=== PATIENT | female | born 1950 | race Caucasian/White ===

== ENCOUNTER 2022-05-30 13:01 | Observation (INO) | payer MEDICAID ==
[~2022-05-30] VITALS: Ht 157.5 cm; Wt 61.2 kg
--- NOTE | 2022-05-30 13:01 | NUR ---
1259- PT TERENCE NORTON, VIA GURNEY TO BED 04.
[2022-05-30 13:07] VITALS: BP 75/44
--- NOTE | 2022-05-30 13:24 | NUR ---
PER DR FOSTER FINISH LITER BOLUS OF FLUIDS, BP NOW 117/68
--- NOTE | 2022-05-30 13:25 | NUR ---
72 Y/O FEMALE BIBA FROM [facility], PER EMS PT WAS SITTING ON HER DINING ROOM CHAIR WHEN SHE HAD A WITNESSED SYNCOPE 20-30 SECONDS BY FAMILY, ON SCENE HR WAS 48 AND BP 84/30, INSERTED 18 G IN THE RAC AND GIVEN 500CC OF NSS, BP BY EMS 127/72, HR 62. PER EMS DENIED ANY HEAD INJURY, PT STATES PAIN ON THE RIGHT SIDE OF HER BODY AND DIZZINESS. BP IN BED 75/44, PLACED IN [place]. PER PT SHE HAS BEEN FEELING DIZZY AND WEAK FOR THE PAST 3DAYS BUT HAS ONLY HAD A SYNCOPE TODAY. NKA PMH: HTN, HDL, HYPOTHYROIDISM
[2022-05-30] MEDS ORDERED: NACL 0.9% 1,000 ML IV ONE (13:50)
--- NOTE | 2022-05-30 14:39 | NUR ---
lab at bedside
--- NOTE | 2022-05-30 14:52 | NUR ---
taken to ct via jos ej
--- NOTE | 2022-05-30 14:54 | NUR ---
PT RETURN FROM CT
[2022-05-30 15:13] LABS: BASOPHILS % (AUTO) 0.6 % (0.0-2.0); EOSINOPHILS % (AUTO) 0.4 % (0.0-4.0); HEMATOCRIT 36.8 % (36-48); HEMOGLOBIN 11.9 g/dL (12.0-16.0); LYMPHOCYTES # (AUTO) 0.7 K/uL (2.5-16.5); LYMPHOCYTES % (AUTO) 11.6 % (20.5-51.1); MEAN CORPUSCULAR HEMOGLOBIN 28 pg (27-31); MEAN CORPUSCULAR HGB CONC 32 g/dL (33-37); MEAN CORPUSCULAR VOLUME 87.5 fL (80-94); MONOCYTES # (AUTO) 0.2 K/uL (0.8-1.0); NEUTROPHILS % (AUTO) 84.4 % (42.2-75.2); PLATELET COUNT (AUTO) 195 K/uL (140-450); RED BLOOD CELL COUNT(AUTO) 4.21 MIL/uL (4.20-5.40); RED CELL DISTRIBUTION WIDTH 14.7 % (11.6-13.7)
--- NOTE | 2022-05-30 15:15 | NUR ---
PT AMBULATED TO BATHROOM
[2022-05-30 15:39] LABS: APPEARANCE,URINE CLEAR (CLEAR); BILIRUBIN,URINE NEGATIVE (NEGATIVE); BLOOD, URINE NEGATIVE (NEGATIVE); COLOR,URINE YELLOW (YELLOW); LEUKOCYTE ESTERASE ,URINE NEGATIVE (NEGATIVE); NITRITE, URINE NEGATIVE (NEGATIVE); PH,URINE 6.5 (5.0-9.0); UGLUCOSE NEGATIVE (NEGATIVE)
[2022-05-30 15:48] LABS: CARBON DIOXIDE 27.1 mmol/L (21-32); CHLORIDE 108 mmol/L (98-107); CREATININE 0.7 mg/dL (0.6-1.3); GLUCOSE 102 mg/dL (74-106); POTASSIUM 4.1 mmol/L (3.5-5.1); SODIUM SERUM 141 mmol/L (136-145); UREA NITROGEN, BLOOD 9 mg/dL (7-18)
[2022-05-30 16:10] LABS: ALBUMIN 3.9 g/dL (3.4-5.0); ASPARTATE AMINOTRANSFERASE 21 U/L (15-37); TOTAL BILIRUBIN 0.7 mg/dL (0.0-1.0)
[2022-05-30] MEDS ORDERED: ASPI-1856 PO (16:18)
[2022-05-30] MEDS ORDERED: ATOR20TA40 PO (16:18)
[2022-05-30] MEDS ORDERED: IBUP-2213 PO (16:18)
[2022-05-30] MEDS ORDERED: LEVO0.0512 PO (16:18)
[2022-05-30] MEDS ORDERED: SUCR1TAB7 PO (16:18)
[2022-05-30] MEDS ORDERED: GABA-636 PO (16:18)
[2022-05-30] MEDS ORDERED: ENAL10TA51 PO (16:18)
[2022-05-30] MEDS ORDERED: CARB1TAB40 PO (16:18)
--- NOTE | 2022-05-30 16:25 | NUR ---
swabs handed to concrete laborershu cox
--- NOTE | 2022-05-30 16:41 | NUR ---
PORTABLE PHONE HANDED TO PT, PT CALLING LANG
[2022-05-30] MEDS ORDERED: ONDANSETRON 4 MG/2 ML VIAL IVP PRN (18:25)
[2022-05-30] MEDS ORDERED: MORPHINE SULFATE 2 MG/ML SYR IVP PRN (18:25)
[2022-05-30] MEDS ORDERED: LORazepam 2 MG/ML VIAL IVP PRN (18:25)
[2022-05-30] MEDS ORDERED: ACETAMINOPHEN 325 MG TAB PO PRN (18:25)
[2022-05-30] MEDS: NACL 0.9% 1,000 ML IV SCH (19:10)
--- NOTE | 2022-05-30 19:24 | NUR ---
ERMD AT BEDSIDE TALKING WITH PT
--- NOTE | 2022-05-30 19:27 | NUR ---
Pt report given to TAYLER Graf. Transfer of care at this time.
--- NOTE | 2022-05-30 20:38 | NUR ---
Patient will be admitted to care of DR GARBER. Admited to TELE. Will go to room. Belongings list completed. Report to TAYLER ANTHONY.
--- NOTE | 2022-05-30 20:43 | NUR ---
Yajaira rojas in [facility] - 05/30/22 at 2103 by JANET RETURN CALL FROM TELEPSYCH DOCTOR WHO SPOKE WITH PRIMARY TAYLER DIANE
[2022-05-30 21:20] VITALS: BP 160/64
--- NOTE | 2022-05-30 21:30 | NUR ---
72 YR FEMALE ADDMITTED TO RM 127A IS ALERT ORIENT TO ROOM AND SURROUNDINGS MADE COMFORTABLE IN BED
[2022-05-31] VITALS: BP 151/68
[2022-05-31 04:00] VITALS: BP 146/66
[2022-05-31] MEDS: NACL 0.9% 1,000 ML IV SCH (04:32)
[2022-05-31 05:59] LABS: BASOPHILS % (AUTO) 1.4 % (0.0-2.0); EOSINOPHILS # (AUTO) 0.1 K/uL (0-0.4); EOSINOPHILS % (AUTO) 1.8 % (0.0-4.0); HEMATOCRIT 31.4 % (36-48); HEMOGLOBIN 10.5 g/dL (12.0-16.0); LYMPHOCYTES % (AUTO) 31.7 % (20.5-51.1); MEAN CORPUSCULAR HEMOGLOBIN 29 pg (27-31); MEAN CORPUSCULAR HGB CONC 33 g/dL (33-37); MEAN CORPUSCULAR VOLUME 86.8 fL (80-94); MONOCYTES # (AUTO) 0.2 K/uL (0.8-1.0); MONOCYTES % (AUTO) 6.7 % (1.7-9.3); NEUTROPHILS # (AUTO) 1.9 K/uL (1.8-7.7); NEUTROPHILS % (AUTO) 58.4 % (42.2-75.2); PLATELET COUNT (AUTO) 175 K/uL (140-450); RED BLOOD CELL COUNT(AUTO) 3.62 MIL/uL (4.20-5.40); RED CELL DISTRIBUTION WIDTH 14.6 % (11.6-13.7); WHITE BLOOD COUNT (AUTO) 3.2 K/uL (4.8-10.8)
[2022-05-31 06:12] LABS: ALBUMIN 3.2 g/dL (3.4-5.0); ASPARTATE AMINOTRANSFERASE 21 U/L (15-37); CARBON DIOXIDE 27.9 mmol/L (21-32); CHLORIDE 110 mmol/L (98-107); CREATININE 0.8 mg/dL (0.6-1.3); GLUCOSE 87 mg/dL (74-106); PHOSPHORUS 3.6 mg/dL (2.5-4.9); POTASSIUM 3.9 mmol/L (3.5-5.1); SODIUM SERUM 145 mmol/L (136-145); TOTAL BILIRUBIN 0.7 mg/dL (0.0-1.0)
[2022-05-31 06:44] LABS: UREA NITROGEN, BLOOD 7 mg/dL (7-18)
--- NOTE | 2022-05-31 07:30 | NUR ---
RECEIVED BEDSIDE REPORT FROM DIGITAL PRINT OPERATOR NURSE, PT AWAKE ALERT ABLE TO LET NEEDS KNOWN, IV TO RIGHT AC 18G, PATENT INTACT, INFUSING WELL. PT ON ROOM AIR, NO SOB NOTED, INITIAL ASSESSMENT DONE, ALL SAFETY PRECAUTION MET, CALL LIGHT WITHIN REACH, WILL CONTINUE TO MONITOR.
[2022-05-31 08:00] VITALS: BP 156/76
[2022-05-31] MEDS ORDERED: SUCRALFATE 1 GM TAB PO SCH (09:00)
[2022-05-31] MEDS ORDERED: ATORVASTATIN 20 MG TAB PO SCH (09:00)
[2022-05-31] MEDS ORDERED: GABAPENTIN 100 MG CAP PO SCH (09:00)
[2022-05-31] MEDS ORDERED: ECOTRIN 81 MG TABEC PO SCH (09:00)
--- NOTE | 2022-05-31 09:00 | NUR ---
DR MCKEON AT BEDSIDE, WILL CONTINUE TO MONITOR.
--- NOTE | 2022-05-31 09:05 | NUR ---
PATIENT HAS BEEN SCREENED AND CATEGORIZED LOW NUTRITION RISK. PATIENT WILL BE SEEN WITHIN 7 DAYS OF ADMISSION. 06/06/[address]
--- NOTE | 2022-05-31 09:47 | NUR ---
DUE MEDICATIONS ADMINISTERED, PT TOLERATED WELL, WILL CONTINUE TO MONITOR.
--- NOTE | 2022-05-31 11:25 | NUR ---
DISCHARGE INSTRUCTION GIVEN, DIPPER AND BAKER LAURA #[id number] THROUGH [employer]. PT STATED UNDERSTANDING, DAUGHTER STATED UNDERSTANDING, ALL QUESTIONS ANSWERED.
--- NOTE | 2022-05-31 11:34 | NUR ---
PT LEFT UNIT, DAUGHTER WAITING IN CAR. PT IN STABLE CONDITION, IV TAKEN OUT, CATH INTACT, WRISTBAND TAKEN OUT.
[2022-06-01] MEDS ORDERED: LEVOTHYROXINE 0.05 MG TAB PO SCH (06:30)
== END 2022-05-31 11:40 | disposition home or self-care (01) ==
LOC: MED 13:01 → MTU 18:30 → MMU 20:06
PROVIDERS: ADMIT Student in an Organized Health Care Education/Training Program; ATTEND Student in an Organized Health Care Education/Training Program
DX: I95.1 Orthostatic hypotension (principal); Z20.822 Contact with and (suspected) exposure to COVID-19; I10 Essential (primary) hypertension; E78.5 Hyperlipidemia, unspecified; N83.8 Other noninflammatory disorders of ovary, fallopian tube and broad ligament; E03.9 Hypothyroidism, unspecified; R16.0 Hepatomegaly, not elsewhere classified; F03.90 Unspecified dementia, unspecified severity, without behavioral disturbance, psychotic disturbance, mood disturbance, and anxiety; Z79.82 Long term (current) use of aspirin; Z79.899 Other long term (current) drug therapy
CPT/HCPCS: 36415; 74176; 80053; 81003; 83735; 84100; 84484; 85025; 87081; 87426; 93005; 96360; 96361; 99285; G0378

== ENCOUNTER 2022-08-16 12:40 | Emergency (ER) | payer MEDICAID ==
[~2022-08-16] VITALS: Ht 149.9 cm; Wt 47.6 kg
[~2022-08-16 12:40] MED LIST: ASPI-1856 PO; ATOR20TA40 PO; CARB1TAB40 PO; ENAL10TA51 PO; GABA-636 PO; IBUP-2213 PO; LEVO0.0512 PO; SUCR1TAB7 PO
[2022-08-16 12:51] VITALS: BP 162/111
--- NOTE | 2022-08-16 12:51 | NUR ---
pt ambulated to bed 12
--- NOTE | 2022-08-16 13:32 | NUR ---
72 Y/O FEMALE LUNA PEARSON C/O RIGHT LOWER ABD PAINX2 WEEKS, PER PT SHE WAS SUPPOSED TO BE SCHEDULED FOR A LAPAROSCOPIC REMOVAL OF THE RIGHT OVARY, HOWEVER THE SURGERY WAS NOT SCHEDULED SINCE THEY FOUND A MASS IN HER LIVER, SCHEDULED FOR AN MRI FOR THE LIVER MASS IN UNKNOWN DATE. KAYODE PMH: HTN Addendum: 08/16/22 at 1349 by MNAGUILA UNSPECIFIED OVARY NOT THE RIGHT SITE, NEW PAPERWORK GIVEN BY FAMILY MEMBER
[2022-08-16 13:33] LABS: BASOPHILS % (AUTO) 1.3 % (0.0-2.0); EOSINOPHILS # (AUTO) 0.1 K/uL (0-0.4); EOSINOPHILS % (AUTO) 2.5 % (0.0-4.0); HEMATOCRIT 32.9 % (36-48); HEMOGLOBIN 11.1 g/dL (12.0-16.0); LYMPHOCYTES % (AUTO) 26.4 % (20.5-51.1); MEAN CORPUSCULAR HEMOGLOBIN 29 pg (27-31); MEAN CORPUSCULAR HGB CONC 34 g/dL (33-37); MEAN CORPUSCULAR VOLUME 85.5 fL (80-94); MONOCYTES # (AUTO) 0.2 K/uL (0.8-1.0); MONOCYTES % (AUTO) 5.6 % (1.7-9.3); NEUTROPHILS # (AUTO) 2.4 K/uL (1.8-7.7); NEUTROPHILS % (AUTO) 64.2 % (42.2-75.2); PLATELET COUNT (AUTO) 194 K/uL (140-450); RED BLOOD CELL COUNT(AUTO) 3.85 MIL/uL (4.20-5.40); RED CELL DISTRIBUTION WIDTH 14.6 % (11.6-13.7); WHITE BLOOD COUNT (AUTO) 3.7 K/uL (4.8-10.8)
[2022-08-16 14:11] LABS: APPEARANCE,URINE CLEAR (CLEAR); BILIRUBIN,URINE NEGATIVE (NEGATIVE); BLOOD, URINE NEGATIVE (NEGATIVE); COLOR,URINE YELLOW (YELLOW); LEUKOCYTE ESTERASE ,URINE NEGATIVE (NEGATIVE); NITRITE, URINE NEGATIVE (NEGATIVE); UGLUCOSE NEGATIVE (NEGATIVE)
[2022-08-16 14:30] LABS: ANION GAP 12.9 (8-16); ASPARTATE AMINOTRANSFERASE 23 U/L (15-37); CARBON DIOXIDE 27.1 mmol/L (21-32); CHLORIDE 105 mmol/L (98-107); CREATININE 0.9 mg/dL (0.6-1.3); GLUCOSE 89 mg/dL (74-106); SODIUM SERUM 141 mmol/L (136-145); TOTAL BILIRUBIN 0.7 mg/dL (0.0-1.0); UREA NITROGEN, BLOOD 12 mg/dL (7-18)
[2022-08-16] MEDS ORDERED: ONDANSETRON 4 MG/2 ML VIAL IVP ONE (14:50)
[2022-08-16] MEDS ORDERED: MORPHINE SULFATE 4 MG/ML SYR IVP ONE (14:50)
[2022-08-16 15:12] LABS: ALBUMIN 3.7 g/dL (3.4-5.0)
--- NOTE | 2022-08-16 15:23 | NUR ---
PT TAKEN TO CT VIA RAFAEL
--- NOTE | 2022-08-16 15:39 | NUR ---
SPOKE TO DAUGHTER LANG EXPLAINED THAT PT WILL BE RECEIVING NON-IODDIZED CONTRAST FOR CT PER WINSTON
[2022-08-16 18:06] VITALS: BP 150/99
--- NOTE | 2022-08-16 18:07 | NUR ---
Patient discharged with v/s stable. Written and verbal after care instructions ABOUT ABD PAIN given and explained. Patient verbalized understanding. Ambulatory with steady gait. All questions addressed prior to discharge. Advised to follow up with PMD.
== END 2022-08-16 18:07 | disposition home or self-care (01) ==
LOC: MED 12:40
DX: R10.31 Right lower quadrant pain (principal); I10 Essential (primary) hypertension; E03.9 Hypothyroidism, unspecified; E78.00 Pure hypercholesterolemia, unspecified; Z79.899 Other long term (current) drug therapy; Z91.040 Latex allergy status
CPT/HCPCS: 36415; 74176; 80053; 81003; 85025; 96374; 96375; 99285; J2270; J2405

== ENCOUNTER 2022-09-23 13:13 | Emergency (ER) | payer MEDICAID ==
[~2022-09-23] VITALS: Ht 157.5 cm; Wt 47.7 kg
[2022-09-23 13:35] VITALS: BP 142/91
--- NOTE | 2022-09-23 13:42 | NUR ---
PATIENT AMBULATED TO BED 3.
--- NOTE | 2022-09-23 14:30 | NUR ---
72/F WALKED IN C/O MID ABD PAIN ONSET 3WKS. DENIES NVD. AAO4, [place] CITIZ[place] SPEAKING. 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 PMH: HTN, HLD, THYROID
[2022-09-23] MEDS ORDERED: FAMOTIDINE 20 MG/2 ML VIAL IVP ONE (14:40)
[2022-09-23] MEDS ORDERED: NACL 0.9% 1,000 ML IV SCH (14:40)
[2022-09-23] MEDS ORDERED: MORPHINE SULFATE 2 MG/ML SYR IVP PRN (15:00)
[2022-09-23 15:01] LABS: BILIRUBIN,URINE NEGATIVE (NEGATIVE); BLOOD, URINE NEGATIVE (NEGATIVE); LEUKOCYTE ESTERASE ,URINE NEGATIVE (NEGATIVE); NITRITE, URINE NEGATIVE (NEGATIVE); PH,URINE 5.5 (5.0-9.0); UGLUCOSE NEGATIVE (NEGATIVE)
[2022-09-23 15:09] LABS: APPEARANCE,URINE CLEAR (CLEAR); COLOR,URINE STRAW (YELLOW)
[2022-09-23 15:13] LABS: BASOPHILS % (AUTO) 1.1 % (0.0-2.0); EOSINOPHILS % (AUTO) 0.8 % (0.0-4.0); HEMATOCRIT 34.9 % (36-48); HEMOGLOBIN 11.6 g/dL (12.0-16.0); LYMPHOCYTES # (AUTO) 1.2 K/uL (2.5-16.5); LYMPHOCYTES % (AUTO) 30.4 % (20.5-51.1); MEAN CORPUSCULAR HEMOGLOBIN 29 pg (27-31); MEAN CORPUSCULAR HGB CONC 33 g/dL (33-37); MEAN CORPUSCULAR VOLUME 85.6 fL (80-94); MONOCYTES # (AUTO) 0.2 K/uL (0.8-1.0); MONOCYTES % (AUTO) 6.1 % (1.7-9.3); NEUTROPHILS # (AUTO) 2.4 K/uL (1.8-7.7); NEUTROPHILS % (AUTO) 61.6 % (42.2-75.2); PLATELET COUNT (AUTO) 205 K/uL (140-450); RED BLOOD CELL COUNT(AUTO) 4.08 MIL/uL (4.20-5.40); RED CELL DISTRIBUTION WIDTH 14.7 % (11.6-13.7); WHITE BLOOD COUNT (AUTO) 3.9 K/uL (4.8-10.8)
[2022-09-23 15:36] LABS: AMYLASE 83 U/L (25-115); ANION GAP 11.8 (8-16); ASPARTATE AMINOTRANSFERASE 31 U/L (15-37); CARBON DIOXIDE 30.5 mmol/L (21-32); CHLORIDE 103 mmol/L (98-107); CREATININE 0.8 mg/dL (0.6-1.3); GLUCOSE 102 mg/dL (74-106); LIPASE 104 U/L (73-393); POTASSIUM 4.3 mmol/L (3.5-5.1); SODIUM SERUM 141 mmol/L (136-145); TOTAL BILIRUBIN 0.8 mg/dL (0.0-1.0); UREA NITROGEN, BLOOD 13 mg/dL (7-18)
[2022-09-23] MEDS ORDERED: ONDANSETRON 4 MG/2 ML VIAL IVP ONE (15:40)
[2022-09-23] MEDS ORDERED: FAMO-90 PO (16:56)
[2022-09-23] MEDS ORDERED: ACET-10509 PO (16:56)
[2022-09-23] MEDS ORDERED: OMEP40EC23 PO (16:56)
[2022-09-23] MEDS ORDERED: ONDA-188 PO (16:56)
[2022-09-23] MEDS ORDERED: SUCR1TAB35 PO (16:57)
--- NOTE | 2022-09-23 17:30 | NUR ---
IV removed, catheter intact and site benign. Applied folded 4x4 gauze and tape to stop bleeding.
--- NOTE | 2022-09-23 17:35 | NUR ---
Patient discharged with v/s stable. Written and verbal after care instructions ABOUT CT SCAN, FOOD CHOICES FOR GERD, GERD given and explained. Patient alert, oriented and verbalized understanding of instructions. Ambulatory with steady gait. All questions addressed prior to discharge. ID band removed. Patient advised to follow up with PMD. Rx of TYLENOL EXTRA STRENGTH, PEPCID, OMEPRAZOLE, ZOFRAN, CARAFATE given. Patient educated on indication of medication including possible reaction and side effects. Opportunity to ask questions provided and answered.
== END 2022-09-23 17:35 | disposition home or self-care (01) ==
LOC: MED 13:13
DX: K29.70 Gastritis, unspecified, without bleeding (principal); C22.9 Malignant neoplasm of liver, not specified as primary or secondary; I10 Essential (primary) hypertension; E78.5 Hyperlipidemia, unspecified; E03.9 Hypothyroidism, unspecified; Z79.899 Other long term (current) drug therapy
CPT/HCPCS: 36415; 74176; 80053; 81003; 82150; 83690; 85025; 96361; 96374; 96375; 99284; J2270; J2405; J3490

== ENCOUNTER 2022-10-31 12:03 | Emergency (ER) | payer MEDICAID ==
[~2022-10-31] VITALS: Ht 157.5 cm; Wt 45.8 kg
[~2022-10-31 12:03] MED LIST changes: +ACET-10509 PO; +FAMO-90 PO; +OMEP40EC23 PO; +ONDA-188 PO; +SUCR1TAB35 PO
--- NOTE | 2022-10-31 12:12 | NUR ---
PT AMBULATED TO ER BED 5
[2022-10-31 12:13] VITALS: BP 195/68
--- NOTE | 2022-10-31 12:40 | NUR ---
Dr. Drummond evaluating patient at bedside
[2022-10-31 12:41] LABS: BASOPHILS % (AUTO) 1.4 % (0.0-2.0); EOSINOPHILS % (AUTO) 0.8 % (0.0-4.0); HEMATOCRIT 34.6 % (36-48); HEMOGLOBIN 11.3 g/dL (12.0-16.0); LYMPHOCYTES # (AUTO) 0.9 K/uL (2.5-16.5); LYMPHOCYTES % (AUTO) 27.5 % (20.5-51.1); MEAN CORPUSCULAR HEMOGLOBIN 28 pg (27-31); MEAN CORPUSCULAR HGB CONC 33 g/dL (33-37); MEAN CORPUSCULAR VOLUME 85.7 fL (80-94); MONOCYTES # (AUTO) 0.2 K/uL (0.8-1.0); MONOCYTES % (AUTO) 6.3 % (1.7-9.3); NEUTROPHILS # (AUTO) 2.2 K/uL (1.8-7.7); PLATELET COUNT (AUTO) 212 K/uL (140-450); RED BLOOD CELL COUNT(AUTO) 4.03 MIL/uL (4.20-5.40); WHITE BLOOD COUNT (AUTO) 3.4 K/uL (4.8-10.8)
--- NOTE | 2022-10-31 12:41 | NUR ---
72/F WALKED IN C/O RIGHT SIDED ABD PAIN ACCOMPANIED BY NAUSEA ONSET 1 DAY. AFEBRILE AT TRIAGE. PT REPORTS LIVER MASS FOUND IN 08/2022. PATIENT A&OX4, AMBULATORY, STATES HAS NOT STARTED TREATMENT FOR MASS; CURRENTLY SEEING ONCOLOGIST. PT REPORTS 05/12, DULL/CONSTANT, NON-RADIATING PAIN. DENIES NAUSEA, VOMITING, DIARRHEA, CONSTIPATION, CHEST PAIN, FEVER, CHILLS, DYSURIA, URINARY SYMPTOMS. PT PLACED IN GOWN AND GLOBAL ANALYTICS HEAD. BED LOCKED IN LOWEST POSITION, SIDE RAILS X 1. PMH: HTN, HLD, OVARIAN CYST, HYPOTHYROIDISM, LIVER MASS (08/24) MEDS: CARAFATE, TYLENOL, OMPERAZOLE, PEPCID, ENALAPRIL, ATORVASTATIN, LEVOTHYROXINE, GABAPENTIN, ASA 81MG ALLERGIES: IODINE
[2022-10-31 12:47] LABS: ALBUMIN 3.9 g/dL (3.4-5.0); ANION GAP 11.9 (8-16); ASPARTATE AMINOTRANSFERASE 23 U/L (15-37); CARBON DIOXIDE 29.8 mmol/L (21-32); CHLORIDE 102 mmol/L (98-107); CREATININE 0.9 mg/dL (0.6-1.3); GLUCOSE 101 mg/dL (74-106); POTASSIUM 3.7 mmol/L (3.5-5.1); SODIUM SERUM 140 mmol/L (136-145); TOTAL BILIRUBIN 0.6 mg/dL (0.0-1.0); UREA NITROGEN, BLOOD 13 mg/dL (7-18)
[2022-10-31] MEDS ORDERED: KETOROLAC 15 MG/ML VIAL IVP ONE (12:50)
[2022-10-31] MEDS ORDERED: PANTOPRAZOLE 40 MG INJ VIAL IVP ONE (12:50)
--- NOTE | 2022-10-31 12:55 | NUR ---
US tech at bedside
[2022-10-31 15:43] VITALS: BP 148/70
[2022-10-31] MEDS ORDERED: TRAM-748 PO (15:45)
[2022-10-31] MEDS ORDERED: OMEP20EC11 PO (15:45)
--- NOTE | 2022-10-31 16:08 | NUR ---
Patient discharged with v/s stable. Written and verbal after care instructions ABOUT LIVER CA, ABD PAIN given and explained. Patient alert, oriented and verbalized understanding of instructions. Ambulatory with steady gait. All questions addressed prior to discharge. ID band removed. Patient advised to follow up with PMD. Rx of OMEPRAZOLE, TRAMADOL given. Patient educated on indication of medication including possible reaction and side effects. Opportunity to ask questions provided and answered.
== END 2022-10-31 16:08 | disposition home or self-care (01) ==
LOC: MED 12:03
DX: C22.9 Malignant neoplasm of liver, not specified as primary or secondary (principal); C79.60 Secondary malignant neoplasm of unspecified ovary; R10.9 Unspecified abdominal pain; I10 Essential (primary) hypertension; E07.9 Disorder of thyroid, unspecified; Z79.899 Other long term (current) drug therapy; Z88.8 Allergy status to other drugs, medicaments and biological substances; Z79.82 Long term (current) use of aspirin
CPT/HCPCS: 36415; 74177; 76705; 80053; 85025; 96374; 96375; 99285; C9113; J1885; Q0092; Q9967

== ENCOUNTER 2023-06-30 11:50 | Emergency (ER) | payer MEDICAID ==
[~2023-06-30] VITALS: Ht 157.5 cm; Wt 44.9 kg
[~2023-06-30 11:50] MED LIST changes: +OMEP20EC11 PO; +TRAM-748 PO
[2023-06-30 12:29] VITALS: BP 112/69; PULSE 66; RESP 18; TEMP 98; O2SAT 98
[2023-06-30 13:19] LABS: BASOPHILS % (AUTO) 1.1 % (0.0-2.0); EOSINOPHILS % (AUTO) 1.2 % (0.0-4.0); HEMATOCRIT 33.3 % (36-48); LYMPHOCYTES # (AUTO) 1.1 K/uL (2.5-16.5); LYMPHOCYTES % (AUTO) 27.5 % (20.5-51.1); MEAN CORPUSCULAR HEMOGLOBIN 28 pg (27-31); MEAN CORPUSCULAR HGB CONC 33 g/dL (33-37); MEAN CORPUSCULAR VOLUME 84.6 fL (80-94); MONOCYTES # (AUTO) 0.2 K/uL (0.8-1.0); MONOCYTES % (AUTO) 5.7 % (1.7-9.3); NEUTROPHILS # (AUTO) 2.6 K/uL (1.8-7.7); NEUTROPHILS % (AUTO) 64.5 % (42.2-75.2); PLATELET COUNT (AUTO) 200 K/uL (140-450); RED BLOOD CELL COUNT(AUTO) 3.93 MIL/uL (4.20-5.40); RED CELL DISTRIBUTION WIDTH 15.1 % (11.6-13.7)
[2023-06-30 13:29] LABS: APPEARANCE,URINE CLEAR (CLEAR); BILIRUBIN,URINE NEGATIVE (NEGATIVE); BLOOD, URINE NEGATIVE (NEGATIVE); COLOR,URINE YELLOW (YELLOW); LEUKOCYTE ESTERASE ,URINE NEGATIVE (NEGATIVE); NITRITE, URINE NEGATIVE (NEGATIVE); PROTEIN,URINE NEGATIVE (NEGATIVE); UGLUCOSE NEGATIVE (NEGATIVE); UROBILINOGEN,URINE 0.2 EU/dL (0.2 - 1)
[2023-06-30 13:49] LABS: ALANINE AMINOTRANSFERASE 8 U/L (12-78); ALKALINE PHOSPHATASE 58 U/L (50-136); ANION GAP 8.5 (8-16); ASPARTATE AMINOTRANSFERASE 24 U/L (15-37); CALCIUM 9.3 mg/dL (8.5-10.1); CARBON DIOXIDE 30.5 mmol/L (21-32); CHLORIDE 104 mmol/L (98-107); CREATININE 0.9 mg/dL (0.6-1.3); GLUCOSE 90 mg/dL (74-106); LIPASE 78 U/L (73-393); SODIUM SERUM 139 mmol/L (136-145); TOTAL BILIRUBIN 0.7 mg/dL (0.0-1.0); TOTAL PROTEIN, SERUM 7.1 g/dL (6.4-8.2); UREA NITROGEN, BLOOD 14 mg/dL (7-18)
[2023-06-30] MEDS ORDERED: ALUMINUM HYD/MAG/SIMETHICONE 30 ML UDC PO ONE (14:25)
[2023-06-30] MEDS ORDERED: MORPHINE SULFATE 4 MG/ML SYR IM ONE (14:25)
[2023-06-30] MEDS ORDERED: DICYCLOMINE HCL LIQUID 10 MG/5 ML UDC PO ONE (14:25)
[2023-06-30] MEDS ORDERED: PANTOPRAZOLE 40 MG TABEC PO ONE (14:25)
[2023-06-30] MEDS ORDERED: OMEP20EC11 PO (15:36)
[2023-06-30] MEDS ORDERED: MAA30 PO (15:36)
[2023-06-30] MEDS ORDERED: SUCR1TAB35 PO (15:36)
== END 2023-06-30 16:04 | disposition home or self-care (01) ==
LOC: MED 11:50
DX: K21.9 Gastro-esophageal reflux disease without esophagitis (principal); D18.03 Hemangioma of intra-abdominal structures; E03.9 Hypothyroidism, unspecified; I10 Essential (primary) hypertension; Z79.899 Other long term (current) drug therapy
CPT/HCPCS: 36415; 74176; 80053; 81003; 83690; 85025; 96372; 99285; J2270

== ENCOUNTER 2023-10-20 09:11 | Emergency (ER) | payer MEDICAID ==
[~2023-10-20] VITALS: Ht 152.4 cm; Wt 44.0 kg
[~2023-10-20 09:11] MED LIST changes: +MAA30 PO
[2023-10-20 09:53] VITALS: BP 137/70; PULSE 98; RESP 18; TEMP 98.6; O2SAT 96
[2023-10-20 11:19] LABS: BASOPHILS % (AUTO) 0.5 % (0.0-2.0); HEMATOCRIT 22.6 % (36-48); HEMOGLOBIN 7.7 g/dL (12.0-16.0); LYMPHOCYTES # (AUTO) 0.6 K/uL (2.5-16.5); MEAN CORPUSCULAR HEMOGLOBIN 29 pg (27-31); MEAN CORPUSCULAR HGB CONC 34 g/dL (33-37); MEAN CORPUSCULAR VOLUME 83.6 fL (80-94); MONOCYTES # (AUTO) 0.6 K/uL (0.8-1.0); MONOCYTES % (AUTO) 6.9 % (1.7-9.3); NEUTROPHILS # (AUTO) 6.8 K/uL (1.8-7.7); NEUTROPHILS % (AUTO) 84.6 % (42.2-75.2); PLATELET COUNT (AUTO) 416 K/uL (140-450); RED CELL DISTRIBUTION WIDTH 15.2 % (11.6-13.7)
[2023-10-20 11:43] LABS: ANION GAP 15.7 (8-16); CALCIUM 9.5 mg/dL (8.5-10.1); CARBON DIOXIDE 26.1 mmol/L (21-32); CHLORIDE 92 mmol/L (98-107); CREATININE 0.8 mg/dL (0.6-1.3); GLUCOSE 126 mg/dL (74-106); POTASSIUM 4.8 mmol/L (3.5-5.1); SODIUM SERUM 129 mmol/L (136-145); UREA NITROGEN, BLOOD 11 mg/dL (7-18)
[2023-10-20] MEDS ORDERED: NACL 0.9% 1,000 ML IV ONE (12:00)
[2023-10-20 12:25] LABS: ALBUMIN 2.9 g/dL (3.4-5.0); BILIRUBIN,DIRECT 0.3 mg/dL (0.0-0.3); TOTAL BILIRUBIN 0.9 mg/dL (0.0-1.0); TOTAL PROTEIN, SERUM 7.6 g/dL (6.4-8.2)
[2023-10-20 12:29] LABS: PARTIAL THROMBOPLASTIN TIME 27.6 secs (22-35.6); PROTHROMBIN TIME 10.5 secs (10.8-13.4)
[2023-10-20 12:45] LABS: APPEARANCE,URINE CLEAR (CLEAR); BILIRUBIN,URINE NEGATIVE (NEGATIVE); BLOOD, URINE NEGATIVE (NEGATIVE); COLOR,URINE YELLOW (YELLOW); LEUKOCYTE ESTERASE ,URINE NEGATIVE (NEGATIVE); NITRITE, URINE NEGATIVE (NEGATIVE); PH,URINE 6.5 (5.0-9.0); PROTEIN,URINE 1+ (NEGATIVE); UGLUCOSE NEGATIVE (NEGATIVE)
[2023-10-20 12:50] LABS: BACTERIA,URINE OCCASSIONAL /HPF (None Seen); RBC,URINE 0-5 /HPF (0-5); SQUAMOUS EPITHELIAL CELL,UR 0-3 (FEW) /LPF (0-3 (FEW)); WBC,URINE 0-5 /HPF (0-5)
[2023-10-20 12:55] LABS: AMPHETAMINE, URINE NEGATIVE ng/ml (NEG <=1000); BARBITURATE, URINE NEGATIVE ng/ml (NEG <=200); BENZODIAZEPINE, URINE NEGATIVE ng/mL (NEG <=200); CANNABINOID, URINE NEGATIVE ng/mL (NEG <=50); COCAINE, URINE NEGATIVE ng/mL (NEG <=300); OPIATE, URINE NEGATIVE ng/mL (NEG <=2000); PHENCYCLIDINE SCREEN,URINE NEGATIVE ng/mL (NEG <=25)
[2023-10-20 14:08] VITALS: BP 137/71; PULSE 93; RESP 23; TEMP 97.9; O2SAT 99
== END 2023-10-20 14:08 | disposition home or self-care (01) ==
LOC: MED 09:11
DX: D64.9 Anemia, unspecified (principal); R55 Syncope and collapse; E87.1 Hypo-osmolality and hyponatremia; E87.8 Other disorders of electrolyte and fluid balance, not elsewhere classified; K21.9 Gastro-esophageal reflux disease without esophagitis; E03.9 Hypothyroidism, unspecified; I10 Essential (primary) hypertension; Z79.899 Other long term (current) drug therapy
CPT/HCPCS: 36415; 70450; 71045; 80048; 80076; 80305; 81001; 82550; 84484; 85025; 85610; 85730; 93005; 96360; 99285; J7030